=== PATIENT | male | born 1960 | race Caucasian/White ===

== ENCOUNTER → 2018-12-24 | Outpatient (CLI) | payer OTHER ==
--- NOTE | 2018-12-24 19:42 | DIREP ---
PROCEDURE:MRI SPINE LUMBAR W/O COMPARISON:None. INDICATIONS:G99.0 Autonomic neuropathy, M54.41 LUMBAGO W/SCIATICA, M54.5 LOW BACK PAIN TECHNIQUE:A comprehensive examination was performed utilizing a variety of imaging planes and imaging parameters to optimize visualization of suspected pathology. Images were performed without intravenous gadolinium contrast. FINDINGS: ALIGNMENT:Minimal levoscoliosis of the lower lumbar spine. VERTEBRA:No fracture. Degenerative bony endplate changes adjacent to the L5-S1 disc. CORD/CAUDA EQUINA:Normal size, contour, and signal intensity. PARASPINAL AREA:Incidental note is made of a 1 cm right renal cyst. OTHER:None. LUMBAR DISC LEVELS T12-L1:No significant disc/facet abnormality, spinal stenosis, or foraminal stenosis. L1-L2:No significant disc/facet abnormality, spinal stenosis, or foraminal stenosis. L2-L3:Mild posterior disc bulge. Mild bilateral foraminal stenosis. L3-L4:Mild posterior disc bulge. Ligamentous hypertrophy. Mild central canal spinal stenosis and moderate bilateral foraminal stenosis. L4-L5:Large broad-based disc extrusion/herniation which lateralizes to the right. Marked bilateral ligamentous hypertrophy. Marked central canal spinal stenosis , marked right and moderate left foraminal stenosis. Right nerve root displacement. There is a 3 x 5 mm synovial cyst along the anterior medial aspect of the right facet joint. This does not extend beyond the confines of the patient's right hypertrophied ligament. L5-S1:Loss of disc height. Mild broad-based posterior disc protrusion/herniation and bilateral facet arthropathy. Moderate bilateral foraminal stenosis. CONCLUSION: 1. Multilevel degenerative changes of the lumbar spine. 2. Changes are greatest at L4-5 level , where there are findings of right nerve root displacement, marked acquired central canal spinal stenosis, and bilateral foraminal stenosis. 3. Please see above discussion for details of other findings. Dictated by: Thiago Russ M.D. on 12/24/2018 at 07:32 PM
== END | disposition home or self-care (01) ==
LOC: RAD 15:36
PROVIDERS: ATTEND Nurse Practitioner Family
DX: M51.36 Other intervertebral disc degeneration, lumbar region (principal); M48.061 Spinal stenosis, lumbar region without neurogenic claudication; G99.0 Autonomic neuropathy in diseases classified elsewhere; M54.41 Lumbago with sciatica, right side
CPT/HCPCS: 72148